=== PATIENT | male | born 1995 | race Two or more races ===

== ENCOUNTER 2021-05-07 20:44 | Emergency (ER) | payer MEDICAID, OTHER ==
[~2021-05-07] VITALS: Ht 162.6 cm; Wt 70.8 kg
--- NOTE | 2021-05-07 21:26 | NUR ---
PT BIBRA 89 ESCORTED W/ [employer] AND FOUND ON THE STREETS BY BYSTANDER WHO CALLED 911 C/O ETOH W/ ALCOHOL BOTTLE IN HAND. DENIES DRUGS. DENIES PAIN. PATIENT IS ALERT AND ORIENTED x4. PATIENT IS AMBULATORY WITH UNSTEADY GAIT. PATIENT IS BREATHING EVENLY AND UNLABORED ON ROOM AIR. CONNECTED TO THE MONITOR.
--- NOTE | 2021-05-07 22:26 | NUR ---
URINE COLLECTED AND SENT TO LAB
--- NOTE | 2021-05-08 01:20 | NUR ---
pt sleeping. attached to monitor and pox.
--- NOTE | 2021-05-08 02:16 | NUR ---
Patient is resting comfortably in bed with eyes closed. Easily aroused. VSS
--- NOTE | 2021-05-08 03:15 | NUR ---
pt watching tv, attached to monitor and pox
--- NOTE | 2021-05-08 04:19 | NUR ---
Patient is resting comfortably in bed with eyes closed. Easily aroused. VSS
--- NOTE | 2021-05-08 04:59 | NUR ---
PT IS WOKE UP FROM SLEEP. NOT IN RESP DISTRESS. AAOX4. VERBALIZED THAT HE IS FEELING BETTER AND REQUESTING TO LEAVE. PT IS ABLE TO AMBULATE ON STEADY GAIT WITHOUT ASSIST. PT DENIES AND THOUGHT OF HARMING SELF NOR OTHERS.
--- NOTE | 2021-05-08 05:34 | NUR ---
Patient given written and verbal discharge instructions. Patient verbalizes understanding of instructions. Patient is ambulatory with steady gait. Refuses offer of [facility] placement. Patient given list of available shelters in surrounding area.
[2021-05-08 05:36] VITALS: BP 130/70
== END 2021-05-08 05:36 | disposition home or self-care (01) ==
LOC: ER 20:46 → EDBD 20:46 → ER 05-08 05:36
DX: F10.129 Alcohol abuse with intoxication, unspecified (principal); Z60.2 Problems related to living alone; Y90.9 Presence of alcohol in blood, level not specified